=== PATIENT | male | born 2000 | race Caucasian/White ===

== ENCOUNTER 2022-01-01 17:08 | Emergency (ER) | payer OTHER ==
[~2022-01-01] VITALS: Ht 165.1 cm; Wt 81.8 kg
[2022-01-01] MEDS ORDERED: LIDOCAINE 1% HCL (LOCAL ANESTH.) INJ 20ML MDV IJ ONE (20:30)
[2022-01-01 21:04] VITALS: BP 120/77
== END 2022-01-01 21:02 | disposition home or self-care (01) ==
LOC: EDBD 17:08 → ER 17:08
DX: S61.012A Laceration without foreign body of left thumb without damage to nail, initial encounter (principal); W26.0XXA Contact with knife, initial encounter; Y93.89 Activity, other specified; Y92.89 Other specified places as the place of occurrence of the external cause; Y99.8 Other external cause status
CPT/HCPCS: 12002; 73130

== ENCOUNTER 2022-01-09 18:27 | Emergency (ER) | payer OTHER ==
[~2022-01-09] VITALS: Ht 165.1 cm; Wt 82.0 kg
[2022-01-09 19:30] VITALS: BP 112/64
== END 2022-01-09 19:57 | disposition home or self-care (01) ==
LOC: ER 18:27
DX: S61.012D Laceration without foreign body of left thumb without damage to nail, subsequent encounter (principal); W26.0XXD Contact with knife, subsequent encounter

== ENCOUNTER 2022-05-19 18:31 | Emergency (ER) | payer OTHER ==
[~2022-05-19] VITALS: Ht 165.1 cm; Wt 81.0 kg
[2022-05-19] MEDS ORDERED: LIDOCAINE 1% HCL (LOCAL ANESTH.) INJ 20ML MDV IJ ONE (23:15)
[2022-05-20] MEDS ORDERED: CEPH-510 PO (00:42)
[2022-05-20] MEDS ORDERED: IBUP600T28 PO (00:50)
[2022-05-20 01:25] VITALS: BP 119/67
== END 2022-05-20 01:25 | disposition home or self-care (01) ==
LOC: ER 18:32
DX: S61.211A Laceration without foreign body of left index finger without damage to nail, initial encounter (principal); W26.8XXA Contact with other sharp object(s), not elsewhere classified, initial encounter; Y93.89 Activity, other specified; Y92.89 Other specified places as the place of occurrence of the external cause; Y99.8 Other external cause status
CPT/HCPCS: 12002; 73130; 99283; J2001